=== PATIENT | female | born 1940 | race Caucasian/White ===

== ENCOUNTER 2021-03-01 15:54 | Emergency (ER) | payer MEDICARE, SELFPAY ==
--- NOTE | ~2021-03-01 | CT_ITS ---
EXAMINATION: CT brain wo con DATE: 03/01/2021 16:39 INDICATION: Neck pain. Fall. TECHNIQUE: Computed tomography (CT) of the head was performed without intravenous contrast. The mA wa s adjusted according to patient size. Iterative reconstruction technique was employed. The dose-lengt h product was 681.00 mGy-cm. COMPARISON: Head CT 06/19/2018 FINDINGS: There is old infarct in right frontal lobe. There are scattered areas of low attenuation in the cerebral white matter. There is no intracranial hemorrhage, acute infarction, or abnormal intrac ranial mass lesion. The ventricles are normal in size. There is mild mucosal thickening in the parana carmela sinuses. There are likely changes of ocular lens replacement surgeries. The mastoid air cells are normal. IMPRESSION: 1. 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 2. Mild nonspecific cerebral white matter disease, which likely represents chronic small vessel ische july disease. Reviewed, dictated and finalized at location A. IMPRESSION: 1. 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 2. Mild nonspecific cerebral white matter disease, which likely represents pot fisher catrachito small vessel ischemic disease.
--- NOTE | ~2021-03-01 | XR_ITS ---
EXAMINATION: XR hip LT 2V w AP pelvis DATE: 03/01/2021 16:57 INDICATION: Left hip injury. TECHNIQUE: An anteroposterior view of the pelvis and 2 views of left hip were obtained. COMPARISON: Abdomen radiographs 09/29/2013 FINDINGS: There is lumbar levoscoliosis and severe spondylosis. No fracture. There is mild osteoarthr itis of the hips. A pump overlies left pelvis. IMPRESSION: 1. Mild osteoarthritis of the hips. Reviewed, dictated and finalized at location A.
--- NOTE | ~2021-03-01 | XR_ITS ---
EXAMINATION: XR chest 1V DATE: 03/01/2021 16:57 INDICATION: Left shoulder pain. Fall. TECHNIQUE: A single frontal view of the chest was obtained. COMPARISON: Chest 2 views 06/19/2018 FINDINGS: There is chronic mild elevation of right hemidiaphragm. There is mild atelectasis in the lo wer lung zones. Calcified left lung nodules and calcified left hilar lymph nodes are consistent with old granulomatous disease. No pleural effusion or pneumothorax. Cardiomegaly is noted. Surgical clips in the right upper quadrant are likely from cholecystectomy. IMPRESSION: 1. Mild atelectasis in the lower lung zones. 2. Cardiomegaly. Reviewed, dictated and finalized at location A.
--- NOTE | ~2021-03-01 | CT_ITS ---
EXAMINATION: CT cervical spine wo con DATE: 03/01/2021 16:39 INDICATION: Neck pain. Fall. TECHNIQUE: Computed tomography (CT) of the cervical spine was performed without intravenous contrast. Automated exposure control and iterative reconstruction technique were employed. The dose-length pro duct was 213.20 mGy-cm. COMPARISON: None FINDINGS: Bone alignment is normal. Vertebral body heights are normal. There is mildly decreased disc height at C3-C4 and mildly decreased disc height from C4-C5 through C6-C7. The following disc levels are specifically discussed: C2-C3: There is no uncovertebral joint osteoarthritis. There is mild right and severe left facet join t osteoarthritis. There is mild left neural foraminal stenosis. There is no central canal stenosis. C3-C4: There is severe right and mild left uncovertebral joint osteoarthritis. There is severe bilate ral facet joint osteoarthritis. There is mild bilateral neural foraminal stenosis. There is mild cent ral canal stenosis. C4-C5: There is mild right uncovertebral joint osteoarthritis. There is severe bilateral facet joint osteoarthritis. There is mild bilateral neural foraminal stenosis. There is mild central canal stenos is. C5-C6: There is severe right and moderate left uncovertebral joint osteoarthritis. There is severe bi lateral facet joint osteoarthritis. There is mild right and moderate left neural foraminal stenosis. There is mild central canal stenosis. C6-C7: There is no uncovertebral joint osteoarthritis. There is severe bilateral facet joint osteoart hritis. There is mild bilateral neural foraminal stenosis. There is mild central canal stenosis. C7-T1: There is no uncovertebral joint osteoarthritis. There is severe bilateral facet joint osteoart hritis. There is mild bilateral neural foraminal stenosis. There is no central canal stenosis. IMPRESSION: 1. No fracture. 2. Moderate cervical spondylosis. Reviewed, dictated and finalized at location A.
--- NOTE | ~2021-03-01 | XR_ITS ---
EXAMINATION: XR shoulder LT min 2V DATE: 03/01/2021 16:57 INDICATION: Left shoulder pain. Fall. TECHNIQUE: 4 views of left shoulder were obtained. COMPARISON: Left shoulder radiographs 05/07/2011 FINDINGS: Bone alignment is normal. No fracture. There is advanced glenohumeral joint osteoarthritis. The acromioclavicular joint is normal. IMPRESSION: 1. Advanced left glenohumeral joint osteoarthritis. Reviewed, dictated and finalized at location A.
[2021-03-01 15:49] VITALS: PULSE 79; RESP 18; O2SAT 99
[2021-03-01 17:22] LABS: Add Urine Microscopic? YES; Appearance Urine Clear (Clear); Bilirubin Urine Negative (Negative); Blood Urine Negative (Negative); Color Urine Yellow (Yellow); Glucose Urine UA Negative (Negative); Ketones Urine Negative (Negative); Leukocyte Esterase Ur Negative LEU/UL (Negative); Nitrate Urine Negative (Negative); Protein Urine Negative (Negative); RBC Urine 0-2 /hpf (0-2); Squamous Epithelial Cell Urine Rare /hpf (Few); Urobilinogen Urine Negative mg/dL (<2.0); WBC Urine 0-3 /hpf
--- NOTE | 2021-03-01 17:39 | ED.FALL ---
HPI - Fall General Chief Complaint: Fall Stated Complaint: fall Time Seen by Provider: 03/01/21 15:56 Source: family (daughter), EMS and RN notes reviewed Mode of arrival: wheelchair Limitations: dementia History of Present Illness HPI Narrative: This is an 80 year old female with Dementia and chronic pain syndrome who presents for evaluated of an unwitnessed fall. Her daughter is at bedside to help provide history. She thinks patient slide out of her chair and fall. She reports patient is not acting like anything new is hurting. Patient does not remember fall. she is complaining of her chronic left shoulder pain and chronic back pain. Related Data Allergies Allergy/AdvReac Type Severity Reaction Status Date / Time dimenhydrinate [Dramamine] Allergy Unknown dizziness Verified 03/01/21 15:58 meclizine Allergy Unknown dizziness Verified 03/01/21 15:58 morphine Allergy Unknown HALLUCINATI Verified 03/01/21 15:58 ON sulfamethizole Allergy Unknown Nausea Verified 03/01/21 15:58 Review of Systems Review of Systems: ROS unobtainable: Yes other (dementia) [facility] Past Medical History Medical History Chronic pain syndrome Essential (primary) hypertension Presence of intracervical pessary Surgical History Surgical History History of adenoidectomy History of back surgery History of dilation and curettage History of foot surgery (~1978) History of hysterectomy (~04/22/08) has ovaries History of tonsillectomy History of total right knee replacement (TKR) (~08/09/02) History of tubal ligation Hx of cholecystectomy (~02/24/12) Family History Family History Sibling Breast cancer Mother Breast cancer Father Heart failure Other Diabetes mellitus Hypertension Social History Social History Smoking status: Never smoker Alcohol intake: never Exam Const: General: no acute distress and alert Other: oriented to person, at baseline per daughter HENMT: Head: normocephalic and atraumatic General nose exam: Normal external nose present Face and sinus: normal facial exam and face symmetric Mouth: Yes Normal oral and palatal mucosa present, Yes lip normal, Yes oropharynx normal and Yes moist mucous membranes Eyes: Pupils: Equal, round and reactive pupils present EOM: EOMs intact bilaterally Neck: Other: mild posterior neck tenderness, muscular Chest: Chest palpation & inspection: normal inspection of the chest Resp: Effort & Inspection: normal respiratory effort and no retractions Auscultation: clear to auscultation bilaterally Cardio: Rate: regular rate Rhythm: regular rhythm Heart sounds: no murmurs GI: GI Palp: Yes Soft to palpation, No Tenderness to palpation present (GI) and No Guarding due to palpation present (GI) Auscultation: normal bowel sounds Neuro: General: moves all extremities and CN's II-XI intact bilaterally Extrem: Other: able to move all extremities although pain with movement of left shoulder and left hip. Psych: Mental Status: mental status grossly normal Affect: normal affect Course Reevaluation(s) Reevaluation #1: I Discussed with daughter patient's labs and imaging. She is agreeable with discharge Date: 03/01/21 Time: 18:33 Vital Signs Vital signs: Vital Signs Pulse Rate 79 03/01/21 15:49 Respiratory Rate 18 03/01/21 15:49 Pulse Oximetry 99 03/01/21 15:49 Pulse Rate 86 03/01/21 18:15 Respiratory Rate 18 03/01/21 18:15 Blood Pressure 156/93 H 03/01/21 18:15 Pulse Oximetry 97 03/01/21 18:15 MDM - Fall Lab Data Attestation: I reviewed the patient's lab results. Result diagrams: 03/01/21 17:42 03/01/21 17:42 Labs: Lab Results 03/01/21 03/01/21 03/01/21 Range/Units 17:04 17:42 17:42 WBC 11.1 H (4.5-10.0) K/mm3 RBC 4.14 L
[2021-03-01 18:03] LABS: Basophils Absolute Auto 0.1 K/mm3 (0.0-0.1); Basophils Percent Auto 0.5 % (0.2-1.2); Eosinophils Absolute Auto 0.1 K/mm3 (0-0.3); Eosinophils Percent Auto 0.9 % (0-4.4); Hematocrit 38.7 % (37.0-47.0); Hemoglobin 12.9 g/dL (12.0-15.0); Immature Granulocyte Absolute 0.03 K/mm3 (0.00-0.031); Immature Granulocyte Percent A 0.3 % (0-0.5); Lymphocytes Absolute Auto 2.02 K/mm3 (0.9-3.2); Lymphocytes Percent Auto 18.3 % (18.3-44.2); Mean Corpuscular HGB Conc 33.3 g/dl (32-36); Mean Corpuscular Hemoglobin 31.2 pg (26-34); Mean Corpuscular Volume 93.5 fl (80-100); Mean Platelet Volume 9.6 fl (7.4-10.4); Monocytes Absolute Auto 0.5 K/mm3 (0.1-0.6); Monocytes Percent Auto 4.3 % (2.6-8.5); Neutrophils Absolute Auto 8.4 K/mm3 (1.3-6.7); Neutrophils Percent Auto 75.7 % (45.5-73.1); Platelet Count Result 197 k/mm3 (150-375); Red Blood Count 4.14 M/mm3 (4.2-5.4); Red Cell Distribution Width 13.1 % (11.5-14.5); White Blood Count 11.1 K/mm3 (4.5-10.0)
[2021-03-01 18:14] LABS: Alanine Aminotransferase 18 U/L (4-35); Albumin Level 4.2 g/dL (3.5-5.1); Alkaline Phosphatase 72 U/L (38-126); Anion Gap 7 mmol/L (8-16); Aspartate Amino Transferase 27 U/L (14-36); Bilirubin,Total 0.4 mg/dL (0.2-1.3); Blood Urea Nitrogen 20 mg/dL (7-17); Calcium 9.5 mg/dL (8.4-10.2); Carbon Dioxide 29 mmol/L (22-30); Chloride 101 mmol/L (98-107); Estimated CRCL calculation 34 ml/min; Estimated Glomerular Filt Rate 48; Glucose 111 mg/dL (65-110); Potassium 3.9 mmol/L (3.4-5.0); Sodium 137 mmol/L (137-145)
[2021-03-01 18:15] VITALS: BP 156/93; PULSE 86; RESP 18; O2SAT 97
== END 2021-03-01 18:54 ==
PROVIDERS: Emergency Provider General Practice; PCP Family Medicine
DX: M19.012 Primary osteoarthritis, left shoulder (principal); G89.4 Chronic pain syndrome; I10 Essential (primary) hypertension; Z96.651 Presence of right artificial knee joint; R90.82 White matter disease, unspecified; M16.0 Bilateral primary osteoarthritis of hip; M47.812 Spondylosis without myelopathy or radiculopathy, cervical region; I51.7 Cardiomegaly; W07.XXXA Fall from chair, initial encounter
CPT/HCPCS: 36415; 51701; 70450; 71045; 72125; 73030; 73502; 80053; 81001; 85025; 99284

== ENCOUNTER 2022-04-05 09:11 | Observation (INO) | payer MEDICARE, SELFPAY ==
[2022-04-05] VITALS (14 sets, daily range): BP systolic 115–168; BP diastolic 58–89; PULSE 69–89; RESP 12–20; TEMP 36.2–37; O2SAT 95–100; BMI 29.5
--- NOTE | ~2022-04-05 | XR_ITS ---
EXAMINATION: XR chest 1V portable DATE: 04/05/2022 09:34 INDICATION: Altered mental status. TECHNIQUE: A single frontal view of the chest was obtained. COMPARISON: Chest single view 03/01/2021 FINDINGS: There is chronic mild elevation of right hemidiaphragm. There is mild atelectasis at the lilliana ng bases. No pleural effusion or pneumothorax. Cardiomegaly is noted. IMPRESSION: 1. Mild atelectasis at the lung bases. 2. Cardiomegaly. Reviewed, dictated and finalized at location A.
--- NOTE | ~2022-04-05 | CT_ITS ---
EXAMINATION: CT brain wo con DATE: 04/05/2022 10:46 INDICATION: Altered mental status TECHNIQUE: Computed tomography (CT) of the head was performed without intravenous contrast. Sagittal and coronal reconstructions were performed. The mA was adjusted according to patient size. Iterative reconstruction technique was employed. The dose-length product was 681.00 mGy-cm. COMPARISON: head CT dated 03/01/2021 FINDINGS: Again seen is a small region of encephalomalacia consistent with old infarct in the anterior right fr ontal lobe. No acute intracranial hemorrhage, acute infarction or abnormal extra axial fluid collecti on. There is mild scattered white matter hypoattenuation consistent with chronic small vessel ischemi c disease. Symmetric prominence of the sulci consistent with moderate age-appropriate diffuse cerebra l volume loss. Ventricles are normal and symmetric. No mass/mass effect. Changes of bilateral intrao cular lens replacement. Bilateral leydi palatinus. The orbits and mastoid air cells are normal. Mild m ucosal thickening at the left sphenoid and bilateral ethmoid sinuses. IMPRESSION: 1. Small old infarct in the right frontal lobe. No acute intracranial process. 2. Age-related changes including moderate diffuse on loss and mild scattered white matter hypoattenua tion consistent with chronic small vessel ischemic disease. Reviewed, dictated and finalized at location B. IMPRESSION: 1. Small old infarct in the right frontal lobe. No acute intracranial process. 2. Age-related changes including moderate diffuse on loss and mild scattered wh ite matter hypoattenuation consistent with chronic small vessel ischemic diseas e.
--- NOTE | ~2022-04-05 | CT_ITS ---
EXAMINATION: CT abdomen pelvis w con DATE: 04/05/2022 11:54 INDICATION: Abdominal pain TECHNIQUE: Computed tomography (CT) of the abdomen and pelvis was performed with 100 mL Omnipaque-350 intravenous contrast. Automated exposure control and iterative reconstruction technique were employe d. The dose-length product was 990.06 mGy-cm. COMPARISON: CT abdomen dated 02/25/2004 FINDINGS: Volume loss in the bilateral lower lobes with dependent atelectasis, left greater than right. Additio nal compressive atelectasis in the posterior medial lingula. Mild cardiomegaly. No pericardial or ple ural effusion. No pericardial or pleural effusion. Small sliding-type hiatal hernia. The common bile duct is dilated to 1.5 cm there is also moderate intrahepatic biliary ductal dilation, both findings which could be related to interval cholecystectomy with surgical clips the gallbladder fossa. No evid ent obstructing stones or mass. Gas and debris within a 2.3 cm duodenal diverticulum arising from the second portion of the duodenum. Spleen and pancreas are normal. Bilateral adrenal nodules measuring 9 mm on the left and 2.4 x 1.6 cm on the right which is increased from 1.6 x 1.0 cm on study from 18 years prior which would be most consistent an adenoma. Bilateral renal cysts, the largest on the righ t measuring 4.4 cm. Moderate amount stool scattered throughout the colon. There are few scattered hossein catrachito diverticula without adjacent inflammatory change to suggest diverticulitis. Small bowel and appen brent are normal. Bladder is normal. The uterus is not identified and has likely been surgically resect ed. Likely intrathecal pain pump in the subcutaneous tissues at the anterior left pelvis with cathete r extending into the mid lumbar central canal extending cephalad to the level of T10-T11. 30 degrees lumbar levoscoliosis with severe lumbar and lower thoracic spondylosis. IMPRESSION: 1. Moderate intra and extrahepatic biliary ductal dilation which may relate to prior cholecystectomy but would correlate with liver function tests. If symptoms and there is clinical concern for biliary obstruction could consider MRCP for further evaluation. 2. Atelectasis in the bilateral lower lung zones. 3. Cardiomegaly. 4. Small sliding-type hiatal hernia. Reviewed, dictated and finalized at location B. IMPRESSION: 1. Moderate intra and extrahepatic biliary ductal dilation which may relate to prior cholecystectomy but would correlate with liver function tests. If symptom s and there is clinical concern for biliary obstruction could consider MRCP for further evaluation. 2. Atelectasis in the bilateral lower lung zones. 3. Cardiomegaly. 4. Small sliding-type hiatal hernia.
--- NOTE | 2022-04-05 09:17 | ECG_ITS ---
Measurements Intervals [place] Rate: 72 P: 35 CT: 180 QRS: -43 QRSD: 140 T: 83 QT: 409 QTc: 450 Interpretive Statements SINUS RHYTHM LEFT AXIS DEVIATION [QRS AXIS < -30] LEFT BUNDLE BRANCH BLOCK [120+ ms QRS DURATION, 80+ ms Q/S IN V1/V2, 85+ ms R IN I/aVL/V5/V6] NO PREVIOUS ECG AVAILABLE FOR COMPARISON Electronically Signed On 04-06-2022 13:04:39 CDT by Mercy Cortés M.D.
[2022-04-05 09:42] LABS: Glucose Point of Care 89 mg/dl (65-105)
--- NOTE | 2022-04-05 09:57 | ED.AMS ---
HPI - Altered Mental Status General Chief Complaint: Altered Mental Status Stated Complaint: sob/weakness Time Seen by Provider: 04/05/22 09:11 Source: RN notes reviewed History of Present Illness HPI narrative: Patient presents emergency department from [facility] via EMS for altered mental status. History is per EMS and patient. Per EMS when the nursing staff went to check on patient this morning she was minimally responsive when EMS arrived patient was to be hypoxic with an O2 saturation of 85%. At that time she was placed on a nonrebreather and transferred to the ER she was responsive to verbal stimuli at that time but slow to respond to give answers patient is currently laying in bed with her eyes closed she will open her eyes to verbal stimuli she is able to tell me her name and knows that she is at the hospital she denies any complaints at this time per her record she has a morphine pain pump is also on trazodone and Related Data Home Medications Medication Instructions Recorded Confirmed [id number] 120 mcg-lutein 1 tablet PO 03/23/21 03/23/21 150 mcg-herb 37.5 mg chewable tablet (Alive Women's 50 Plus Gummy) Allergies Allergy/AdvReac Type Severity Reaction Status Date / Time dimenhydrinate [Dramamine] Allergy Unknown dizziness Verified 04/05/22 09:32 meclizine Allergy Unknown dizziness Verified 04/05/22 09:32 morphine Allergy Unknown HALLUCINATI Verified 04/05/22 09:32 ON sulfamethizole Allergy Unknown Nausea Verified 04/05/22 09:32 Review of Systems Review of Systems: Gen.: Denies fevers or chills Eyes: Denies eye pain or visual change ENT: Denies congestion Respiratory: Reports shortness of breath CV: Denies chest pain or palpitations GI: Denies abdominal pain nausea, emesis Musculoskeletal: Denies back or joint pain Neuro: Reports altered mental status Skin: Denies rash Except as documented, all other systems reviewed and negative [facility] Past Medical History Medical History Chronic pain syndrome Essential (primary) hypertension Presence of intracervical pessary Surgical History Surgical History History of adenoidectomy History of back surgery History of dilation and curettage History of foot surgery (~1978) History of hysterectomy (~04/22/08) has ovaries History of tonsillectomy History of total right knee replacement (TKR) (~08/09/02) History of tubal ligation Hx of cholecystectomy (~02/24/12) Family History Family History Sibling Breast cancer Mother Breast cancer Father Heart failure Other Diabetes mellitus Hypertension Social History Social History (Updated 04/05/22 @ 13:14 by Kyle Green DO) Smoking status: Never smoker Alcohol intake: never Exam Narrative: APPEARANCE: No acute distress, nontoxic, resting in bed EYES: PERRL HEENT: Normocephalic, atraumatic, OMM RESPIRATORY: No respiratory distress Clear to auscultation bilaterally with no rhonchi wheezing or rales. CARDIOVASCULAR: Regular rate and rhythm without murmurs rubs or gallops. ABDOMINAL: Soft, nontender, nondistended, no rebound or guarding nondistended tender in right lower quadrant left lower quadrant no tenderness in the right upper quadrant left lower quadrant no rebound or guarding al: Moves all extremities. No clubbing, cyanosis or edema. NEURO: Awake and alert x 2. Laying in bed with eyes closed will open to verbal stimuli slow to respond speech is normal no focal deficits SKIN:: Warm, dry. No rashes lesions or abrasions PSYCHIATRIC: Normal affect/mood, Course Course Emergency Course: His daughter is present states that this has happened before with medications before in the past and had to change medications around Discussed Dr. Ross presentation work-up agrees with admission Discussed with patient and family results of workup and diagnosis. Discuss
[2022-04-05 10:05] LABS: Alveolar/Arterial O2 Gradient 0.2 mmHg; Base Excess ABG 4.2 mEq/l (+/-2.0); Fractional Inspired Oxygen 40 %; HCO3 ABG 29.6 mEq/l (22.0-26.0); Methemoglobin ABG 0.1 %THb (0-1.5); Oxygen Content ABG 18.2 %vol (16.0-22.0); Oxygen Saturation ABG 99.5 % (95.0-100.0); PCO2 ABG 47.5 mmHg (35.0-45.0); PO2 ABG 230.4 mmHg (80.0-100.0); PO2 FiO2 Ratio Arterial Blood 5.76 %; Reduced Hemoglobin 0.9 %THb (0-5.0); Total Hemoglobin 12.8 g/dL (12.0-18.0); pH ABG 7.412 (7.350-7.450)
[2022-04-05 10:06] LABS: Device NASAL CANNULA; Modified Allen's Test Pass; Site Drawn LEFT RADIAL
[2022-04-05 10:26] LABS: Basophils Absolute Auto 0.1 K/mm3 (0.0-0.1); Basophils Percent Auto 0.5 % (0.2-1.2); Eosinophils Absolute Auto 0.3 K/mm3 (0-0.3); Eosinophils Percent Auto 2.6 % (0-4.4); Hematocrit 41.7 % (37.0-47.0); Hemoglobin 13.1 g/dL (12.0-15.0); Immature Granulocyte Absolute 0.05 K/mm3 (0.00-0.031); Immature Granulocyte Percent A 0.5 % (0-0.5); Lymphocytes Absolute Auto 2.69 K/mm3 (0.9-3.2); Lymphocytes Percent Auto 26.4 % (18.3-44.2); Mean Corpuscular HGB Conc 31.4 g/dl (32-36); Mean Corpuscular Hemoglobin 30.8 pg (26-34); Mean Corpuscular Volume 97.9 fl (80-100); Monocytes Absolute Auto 0.6 K/mm3 (0.1-0.6); Monocytes Percent Auto 5.4 % (2.6-8.5); Neutrophils Absolute Auto 6.6 K/mm3 (1.3-6.7); Neutrophils Percent Auto 64.6 % (45.5-73.1); Platelet Count Result 220 k/mm3 (150-375); Red Blood Count 4.26 M/mm3 (4.2-5.4); Red Cell Distribution Width 13.8 % (11.5-14.5); White Blood Count 10.2 K/mm3 (4.5-10.0)
[2022-04-05 10:39] LABS: Lactic Acid Reflex 1.9 mmol/L (0.7-2.0)
[2022-04-05 10:40] LABS: Alanine Aminotransferase 23 U/L (6-35); Albumin Level 4.4 g/dL (3.5-5.1); Alkaline Phosphatase 80 U/L (38-126); Anion Gap 13 mmol/L (8-16); Aspartate Amino Transferase 34 U/L (14-36); Bilirubin,Total 0.3 mg/dL (0.2-1.3); Blood Urea Nitrogen 24 mg/dL (7-17); Calcium 9.6 mg/dL (8.4-10.2); Carbon Dioxide 34 mmol/L (22-30); Chloride 97 mmol/L (98-107); Estimated CRCL calculation 31 ml/min; Estimated Glomerular Filt Rate 43; Glucose 100 mg/dL (65-110); Potassium 3.8 mmol/L (3.4-5.0); Sodium 144 mmol/L (137-145)
[2022-04-05 10:41] LABS: Partial Thromboplastin Time 27.9 SECONDS (22.3-36.8); Prothrombin Time 12.8 Seconds (11.1-14.7)
[2022-04-05 11:00] LABS: Add Urine Microscopic? YES; Appearance Urine Cloudy (Clear); Bacteria Urine Trace /hpf; Bilirubin Urine Negative (Negative); Color Urine Amber (Yellow); Glucose Urine UA Negative (Negative); Ketones Urine Negative (Negative); Leukocyte Esterase Ur Negative LEU/UL (Negative); Mucus Urine Rare /lpf; Nitrate Urine Negative (Negative); Protein Urine Negative (Negative); RBC Urine 0-2 /hpf (0-2); Squamous Epithelial Cell Urine Rare /hpf (Few); Urobilinogen Urine Negative mg/dL (<2.0)
[2022-04-05 11:02] LABS: Blood Urine Negative (Negative)
[2022-04-05 11:03] LABS: NT Pro B Type Natriuretic Pept 141 pg/mL (5-100)
[2022-04-05 11:07] LABS: Troponin I < 0.012 ng/mL (0.000-0.034)
[2022-04-05 12:41] LABS: Lipase 164 U/L (23-300)
[2022-04-05 13:03] LABS: SARS-CoV-2 RNA PCR Negative
--- NOTE | 2022-04-05 15:33 | PM.IMHP ---
H&P: HPI History of Present Illness Date/Time: 04/05/22 15:33 Chief Complaint: Shoulder pain, unresponsive behavior, and low saturations Narrative: Patient is an 81-year-old female with a past medical history of hyperlipidemia, dementia, chronic pain syndrome, hypertension who [facility]. It was noted the patient's saturation at the jail was 85%. At that time she was placed on oxygen. Upon arrival to the ED patient was able to respond to aggressive stimuli however would not remain responsive. Currently patient is alert oriented to herself. Which is probably her baseline. Patient can tell me that she is experiencing pain especially in her bilateral shoulders however she cannot tell me why she is here. She did state that she was unable to move her arms however she could do the dgzwep-hz-sxra test multiple different locations. She denies having any chest pain, shortness a breath, nausea, vomiting, diarrhea, constipation, weakness, fatigue, lightheadedness, dizziness, headaches, abdominal pain, abnormal swelling. She would just continuously tell me her shoulders hurt and that she had pain just everywhere. She seems to be much more with it as she did tell me she lives in [facility]. She also told me that she has kids however there much older now. Labs are unremarkable, x-rays are also unremarkable, UA does not appear to be infectious at this time. Patient is being admitted to the hospital service under observation Review of Systems Review of Systems: All systems reviewed & are unremarkable except as noted in HPI and below PMFSH Past Medical History Medical History Chronic pain syndrome Essential (primary) hypertension Presence of intracervical pessary Surgical History Surgical History History of adenoidectomy History of back surgery History of dilation and curettage History of foot surgery (~1978) History of hysterectomy (~04/22/08) has ovaries History of tonsillectomy History of total right knee replacement (TKR) (~08/09/02) History of tubal ligation Hx of cholecystectomy (~02/24/12) Family History Family History Sibling Breast cancer Mother Breast cancer Father Heart failure Other Diabetes mellitus Hypertension Social History Social History Social History: Patient lives at [facility] in [facility]. Her daughter is her healthcare POW Carine. She wishes to be a DNR at this time. Smoking status: Never smoker Alcohol intake: never Substance use: never Living arrangements: assisted living Occupation/Education: retired Gender identity (if verbalized by the patient): Female Sexual Orientation (if Verbalized by the Patient): Straight or Heterosexual Spiritual care concerns: No Agree to blood products: Yes Meds Home Medications and Allergies Home Medications Medication Instructions Recorded Confirmed Type meloxicam 7.5 mg tablet 7.5 mg PO DAILY #90 tabs 09/22/20 04/05/22 Rx quetiapine 200 mg tablet,extended 200 mg PO QHS #90 tabs 01/16/21 04/05/22 Rx release 24 hr (Seroquel XR) [id number] 120 mcg-lutein 1 tablet PO DAILY 03/23/21 04/05/22 History 150 mcg-herb 37.5 mg chewable tablet (Alive Women's 50 Plus Gummy) memantine 10 mg tablet (Namenda) 10 mg PO BID #180 tabs 04/06/21 04/05/22 Rx gabapentin 100 mg capsule 100 mg PO BID #180 caps 05/04/21 04/05/22 Rx famotidine 40 mg tablet See Rx Instructions .Route 06/24/21 04/05/22 Rx .COMPLEX #90 tabs hydrochlorothiazide 12.5 mg capsule 12.5 mg PO DAILY #90 caps 06/29/21 04/05/22 Rx lovastatin 20 mg tablet 20 mg PO DAILY #90 tabs 06/29/21 04/05/22 Rx duloxetine 60 mg capsule,delayed See Rx Instructions .Route 08/03/21 04/05/22 Rx release .COMPLEX #90 caps alprazolam 0.5
--- NOTE | 2022-04-05 16:03 | ADMGEN ---
This patient, Dayanara Avina, was admitted to IMU Room 207-01 at 1500. Patient/family oriented to hospital policies and general routines including ID bracelet, bed and alarms, visiting hours, pain management, procedures, bathroom and other care routines, personal items, smoking policy, room service/diet, and visiting hours. Information on how to activate the Rapid Response Team has been discussed. Patient/Family are encouraged to report perceived risks to care and to ask questions if they do not understand what they are told or what they should do.
[2022-04-05] MEDS: GABAPENTIN 100 MG CAPSULE PO (22:36)
[2022-04-05] MEDS: MEMANTINE 10 MG TABLET PO (22:37)
--- NOTE | 2022-04-05 23:49 | PC.NURSE ---
This patient, Dayanara Avina, was transferred to [facility] on 04/05/22 at 2349. Personal belongings sent with patient. Report given to BLANQUITA Pitts. Appropriate documentation sent with patient.
[2022-04-06 03:50] VITALS: BP 144/62; PULSE 78; RESP 16; TEMP 36.4; O2SAT 93
[2022-04-06 08:30] LABS: Basophils Percent Auto 0.4 % (0.2-1.2); Eosinophils Absolute Auto 0.1 K/mm3 (0-0.3); Eosinophils Percent Auto 1.1 % (0-4.4); Hematocrit 38.9 % (37.0-47.0); Hemoglobin 12.6 g/dL (12.0-15.0); Immature Granulocyte Absolute 0.04 K/mm3 (0.00-0.031); Immature Granulocyte Percent A 0.4 % (0-0.5); Lymphocytes Absolute Auto 2.05 K/mm3 (0.9-3.2); Lymphocytes Percent Auto 20.9 % (18.3-44.2); Mean Corpuscular HGB Conc 32.4 g/dl (32-36); Mean Corpuscular Volume 92.6 fl (80-100); Mean Platelet Volume 9.3 fl (7.4-10.4); Monocytes Absolute Auto 0.3 K/mm3 (0.1-0.6); Monocytes Percent Auto 3.5 % (2.6-8.5); Neutrophils Absolute Auto 7.2 K/mm3 (1.3-6.7); Neutrophils Percent Auto 73.7 % (45.5-73.1); Platelet Count Result 229 k/mm3 (150-375); Red Cell Distribution Width 13.4 % (11.5-14.5); White Blood Count 9.8 K/mm3 (4.5-10.0)
[2022-04-06 08:35] LABS: Alanine Aminotransferase 21 U/L (6-35); Albumin Level 4.2 g/dL (3.5-5.1); Alkaline Phosphatase 82 U/L (38-126); Anion Gap 14 mmol/L (8-16); Aspartate Amino Transferase 28 U/L (14-36); Bilirubin,Total 0.4 mg/dL (0.2-1.3); Blood Urea Nitrogen 19 mg/dL (7-17); Calcium 9.2 mg/dL (8.4-10.2); Carbon Dioxide 29 mmol/L (22-30); Chloride 99 mmol/L (98-107); Estimated CRCL calculation 34 ml/min; Estimated Glomerular Filt Rate 48; Glucose 123 mg/dL (65-110); Potassium 3.6 mmol/L (3.4-5.0); Sodium 142 mmol/L (137-145)
[2022-04-06] MEDS: MEMANTINE 10 MG TABLET PO (09:10)
[2022-04-06] MEDS: GABAPENTIN 100 MG CAPSULE PO (09:10)
[2022-04-06] MEDS: ENOXAPARIN 40 MG/0.4 ML SYRINGE SUB-Q (09:11)
[2022-04-06] MEDS: FAMOTIDINE 20 MG TABLET 40 MG PO (09:11)
[2022-04-06] MEDS: DULoxetine HCL 60 MG CAPSULE.DR PO (09:11)
[2022-04-06] MEDS: LOVASTATIN 20 MG TABLET PO (09:11)
--- NOTE | 2022-04-06 10:15 | PM.DS ---
DS: Admitting Diagnosis Discharge Date 04/06/22 1015 Admitting Diagnosis Acute metabolic encephalopathy DS: Discharge Diagnosis Discharge Diagnosis (1) Acute respiratory failure with hypoxia: Code(s): J96.01 - Acute respiratory failure with hypoxia Status: Acute Assessment and Plan: Noted saturation of 85% upon arrival 5LNC on board ABG indicated hypoxia Probably related to mental status Continue to trend and adjust oxygen as indicated (2) Acute metabolic encephalopathy: Code(s): G93.41 - Metabolic encephalopathy Status: Acute Assessment and Plan: Noted to be responsive to stimuli only Unable to maintain responsiveness Trend mental status Could be related to dementia, medication induced encephalopathy 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 (4) Essential (primary) hypertension: Code(s): I10 - Essential (primary) hypertension Status: Acute Assessment and Plan: BP is 123/68 Hold HCTZ for now Continue to trend BP Adjust therapy as indicated DS: Summary Hospital Course Hospital Course: Patient is an 81-year-old female with a past medical history of chronic pain syndrome, hypertension, multiple back surgeries, muscular skeletal issues who presented to the ED with unresponsive behavior and desaturation. Patient does have a pain pump however she is demented does not really she has 1. It is noted that patient takes a lot of medications including Seroquel, trazodone, Xanax, and tramadol. ABG was taken which was unremarkable. Labs also have been unremarkable and have remained stable throughout the entire visit. Mental status is better. Head CT showed no acute findings. Chest x-ray was okay as well. Patient does complain of pain however she always has pain. I did have a long discussion with the daughter who would like for the patient to stop receiving the Xanax, tramadol however she is concerned about stopping the Seroquel as the patient does have some panic type issues. Currently patient is stable for discharge and daughter states that she has had states like this before. The daughter also stated that a lot of times to get her up she puts ice under her shirt and a wet washcloth on her face. Patient feels okay. Patient is stable for discharge at this time. PT and OT have evaluated and patient is stable for discharge back to her assisted living. Stopped Xanax and tramadol Talked to Juliann's office and gave them an update. Status at Discharge Functional status at discharge: uses cane/walker Overall status at discharge: patient is progressing back to baseline Time Spent with Patient Time attestation: Total time spent providing and/or coordinating discharge services:35 minutes Time spent: Greater than 30 minutes Specific discharge activities: Diagnostic testing, chart review, developing a treatment plan, education, care coordination documentation, physical exam, result review Exam Const: General: cooperative, healthy appearing, no acute distress, well developed, alert, awake and well nourished Nutritional Appearance: well nourished Orientation/consciousness: patient oriented x3 Limitations: no limitations HENMT: Head: normal to inspection Ears: hearing grossly normal bilaterally Face/Nose/Sinus: Normal external nose present Mouth: Yes Normal oral and palatal mucosa present, Yes lip normal and Yes tongue normal Teeth and gingiva: abnormal tooth and associated gingiva and poor dentition Eyes: General: appearance normal, both eyes and all related structures Neck: Neck: normal visual inspection,
[2022-04-06] MEDS: DOCUSATE SODIUM 100 MG CAPSULE PO (12:50)
[2022-04-06] MEDS: polyethylene glycoL 3350 17 GM POWD.PACK PO (12:50)
[2022-04-06 14:24] VITALS: BP 132/65; PULSE 90; RESP 18; TEMP 36.9; O2SAT 94
== END 2022-04-06 16:20 ==
LOC: ANHED 13:16 → ANHIMU 14:25 → ANH2MED 23:54
PROVIDERS: Admitting Provider Hospitalist; Emergency Provider Emergency Medicine; PCP Family Medicine; Visit Provider Hospitalist
DX: J96.01 Acute respiratory failure with hypoxia (principal); G93.41 Metabolic encephalopathy; G89.4 Chronic pain syndrome; I11.9 Hypertensive heart disease without heart failure; Z97.8 Presence of other specified devices; Z20.822 Contact with and (suspected) exposure to COVID-19; I44.7 Left bundle-branch block, unspecified; J98.11 Atelectasis; R90.82 White matter disease, unspecified; K44.9 Diaphragmatic hernia without obstruction or gangrene; E78.5 Hyperlipidemia, unspecified; R10.9 Unspecified abdominal pain; F03.90 Unspecified dementia, unspecified severity, without behavioral disturbance, psychotic disturbance, mood disturbance, and anxiety; Z86.73 Personal history of transient ischemic attack (TIA), and cerebral infarction without residual deficits; Z79.891 Long term (current) use of opiate analgesic; Z79.899 Other long term (current) drug therapy; R79.81 Abnormal blood-gas level
CPT/HCPCS: 36415; 36600; 70450; 71045; 74177; 80053; 81001; 82375; 82805; 82948; 83050; 83605; 83690; 83880; 84484; 85025; 85610; 85730; 87040; 87086; 87147; 87181; 87186; 93005; 96372; 97161; 99291; A9270; C9803; G0378; J1650; Q9967; U0003; U0005

== ENCOUNTER 2022-04-15 06:54 | Emergency (ER) | payer MEDICARE, SELFPAY ==
[2022-04-15] VITALS (15 sets, daily range): BP systolic 140–174; BP diastolic 68–90; PULSE 67–78; RESP 12–19; TEMP 36.7; O2SAT 90–99
--- NOTE | 2022-04-15 07:16 | ECG_ITS ---
Measurements Intervals [place] Rate: 71 P: 46 [place]: 177 QRS: -43 QRSD: 140 T: 101 QT: 413 QTc: 449 Interpretive Statements SINUS RHYTHM MARKED LEFT AXIS DEVIATION [QRS AXIS < -30] LEFT BUNDLE BRANCH BLOCK [120+ ms QRS DURATION, 80+ ms Q/S IN V1/V2, 85+ ms R IN I/aVL/V5/V6] ABNORMAL ECG COMPARED TO ECG 04/05/2022 09:55:51 NO SIGNIFICANT CHANGES Electronically Signed On 04-15-2022 14:55:22 CDT by Vik Meehan M.D.
--- NOTE | 2022-04-15 07:20 | ED.GENADULT ---
HPI - General Adult General Chief complaint: Overdose Stated complaint: nh double dosed her morning meds at 0500 Time Seen by Provider: 04/15/22 07:18 Source: EMS and RN notes reviewed Mode of arrival: EMS Limitations: dementia History of Present Illness HPI narrative: 81 years old white female came from [facility] with accidental overdose on her regular medication. At 5 AM patient received her normal medications which include duloxetine 60 mg, famotidine 40 mg, gabapentin 100 mg, hydrochlorothiazide 12.5 mg, lovastatin 20 mg, meloxicam 7.5 mg,mantadine 10 mg, trazodone 50 mg, women's 50+ vitamin. The same medications was given again at 5:30 AM. Patient looks asymptomatic at this time. History of dementia Related Data Home Medications Medication Instructions Recorded Confirmed [id number]-[id number] 120 mcg-lutein 1 tablet PO DAILY 03/23/21 04/07/22 150 mcg-herb 37.5 mg chewable tablet (Alive Women's 50 Plus Gummy) Allergies Allergy/AdvReac Type Severity Reaction Status Date / Time dimenhydrinate [Dramamine] Allergy Unknown dizziness Verified 04/07/22 15:25 meclizine Allergy Unknown dizziness Verified 04/07/22 15:25 sulfamethizole Allergy Unknown Nausea Verified 04/07/22 15:25 Review of Systems Review of Systems: ROS unobtainable: Yes unobtainable due to mental status PMFSH Past Medical History Medical History Chronic pain syndrome Essential (primary) hypertension Presence of intracervical pessary Surgical History Surgical History History of adenoidectomy History of back surgery History of dilation and curettage History of foot surgery (~1978) History of hysterectomy (~04/22/08) has ovaries History of tonsillectomy History of total right knee replacement (TKR) (~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 She wishes to be a DNR at this time. Smoking status: Never smoker Alcohol intake: never Substance use: never Gender identity (if verbalized by the patient): Female Sexual Orientation (if Verbalized by the Patient): Straight or Heterosexual Spiritual care concerns: No Agree to blood products: Yes Exam Narrative: General appearance: Well-developed, well-nourished Skin: Normal color Head: Normocephalic, nontraumatic Eyes: Clear conjunctiva ENT: Oropharynx normal, ears normal, nose normal Neck: Supple, nontender Chest and respiratory: Airway patent, no respiratory distress, no accessory muscle use Heart: Regular rate/rhythm Abdomen: Soft, nontender, no organomegaly, quiet bowel sounds Vascular: Normal peripheral pulses, normal capillary refill. Neurologic: Alert and oriented to her name only Course Vital Signs Vital signs: Vital Signs Temperature 36.7 C 04/15/22 06:54 Pulse Rate 72 04/15/22 06:54 Respiratory Rate 14 04/15/22 06:54 Blood Pressure 152/74 H 04/15/22 06:54 Pulse Oximetry 95 04/15/22 06:54 Oxygen Delivery Room Air 04/15/22 06:54 Temperature 36.7 C 04/15/22 06:54 Pulse Rate 74 04/15/22 12:48 Respiratory Rate 18 04/15/22 12:48 Blood Pressure 140/90 04/15/22 12:48 Pulse Oximetry 94 04/15/22 12:48 Oxygen Delivery Room Air 04/15/22 06:54 Medical Decision Making Vital Signs Vital Signs: V
[2022-04-15] MEDS: SODIUM CHLORIDE 0.9% IV 1,000 ML 200 ML IV CONT (07:53)
--- NOTE | 2022-04-15 08:04 | PC.NURSE ---
Per EDP Tiffany, no need to call poison control at this time.
--- NOTE | 2022-04-15 15:12 | PC.NURSE ---
Patient's daughter, Carine, updated on patient status and discharge plan. Patient resting comfortably in ED bed.
[2022-04-15] MEDS: ACETAMINOPHEN 325 MG TABLET 650 MG PO (15:40)
== END 2022-04-15 16:00 ==
PROVIDERS: Emergency Provider Emergency Medicine; PCP Family Medicine
DX: T43.211A Poisoning by selective serotonin and norepinephrine reuptake inhibitors, accidental (unintentional), initial encounter (principal); T47.0X1A Poisoning by histamine H2-receptor blockers, accidental (unintentional), initial encounter; T42.6X1A Poisoning by other antiepileptic and sedative-hypnotic drugs, accidental (unintentional), initial encounter; T50.2X1A Poisoning by carbonic-anhydrase inhibitors, benzothiadiazides and other diuretics, accidental (unintentional), initial encounter; T46.6X1A Poisoning by antihyperlipidemic and antiarteriosclerotic drugs, accidental (unintentional), initial encounter; T39.391A Poisoning by other nonsteroidal anti-inflammatory drugs [NSAID], accidental (unintentional), initial encounter; T42.8X1A Poisoning by antiparkinsonism drugs and other central muscle-tone depressants, accidental (unintentional), initial encounter; T45.2X1A Poisoning by vitamins, accidental (unintentional), initial encounter; I10 Essential (primary) hypertension; F03.90 Unspecified dementia, unspecified severity, without behavioral disturbance, psychotic disturbance, mood disturbance, and anxiety; G89.4 Chronic pain syndrome; Z66 Do not resuscitate; Z90.710 Acquired absence of both cervix and uterus; Z96.651 Presence of right artificial knee joint; I44.7 Left bundle-branch block, unspecified
CPT/HCPCS: 93005; 96360; 96361; 99284; A9270; J7030

== ENCOUNTER 2022-06-18 12:09 | Emergency (ER) | payer MEDICARE, SELFPAY ==
[2022-06-18] VITALS (30 sets, daily range): BP systolic 127–132; BP diastolic 58–77; PULSE 76–94; RESP 14–22; TEMP 36.2; O2SAT 94–100
--- NOTE | ~2022-06-18 | XR_ITS ---
EXAMINATION: XR chest 1V portable DATE: 06/18/2022 14:11 INDICATION: Hypoxia TECHNIQUE: frontal view of the chest was obtained. COMPARISON: Chest radiograph dated 04/05/2022 FINDINGS: Chronic elevation of the right hemidiaphragm. No airspace opacities, pulmonary edema, pleural effusio n or pneumothorax. Cardiomegaly. Cholecystectomy clips in right upper quadrant. Severe bilateral adi ohumeral osteoarthritis. IMPRESSION: 1. No acute cardiopulmonary disease. 2. Cardiomegaly. Reviewed, dictated and finalized at location A. ROAD SUPERVISOR OF [employer]INES
--- NOTE | 2022-06-18 13:36 | ECG_ITS ---
Measurements Intervals [place] Rate: 79 P: 68 [place]: 183 QRS: -50 QRSD: 139 T: 99 QT: 388 QTc: 447 Interpretive Statements REDUCED ECG QUALITY BECAUSE OF BASELINE ARTIFACT SINUS RHYTHM LEFT AXIS DEVIATION [QRS AXIS < -30] LEFT BUNDLE BRANCH BLOCK [120+ ms QRS DURATION, 80+ ms Q/S IN V1/V2, 85+ ms R IN I/aVL/V5/V6] COMPARED TO ECG 04/15/2022 07:24:49 NO SIGNIFICANT CHANGES Electronically Signed On 06-18-2022 20:07:46 SETTLEMENT PROCESSOR by Akil Vaughan M.D.
--- NOTE | 2022-06-18 13:50 | ED.AMS ---
HPI - Altered Mental Status General Chief Complaint: Altered Mental Status Stated Complaint: increased confusion, Low O2 Time Seen by Provider: 06/18/22 13:28 History of Present Illness HPI narrative: Patient is an 81-year-old female with a history of dementia, chronic pain, hypertension, hyperlipidemia presenting with low oxygen. Patient's daughter provides the majority of the history. Patient is a resident in a nursing facility and was noted to have an O2 saturation of 91% today. Patient's daughter states that this often happens whenever the patient is lying down and her saturation always improves when she stands up. By the time EMS arrived, the patient saturation was normal. Patient's nursing facility is also concerned that she is slightly more confused than normal. Per the daughter, the patient is at her baseline. Patient has a personal human services supervisor visit her in her nursing facility and was actually able to ambulate to the cafeteria this morning without issue. Currently, the patient denies any complaints. States that her breathing feels normal. Related Data Home Medications Medication Instructions Recorded Confirmed [id number] 120 mcg-lutein 1 tablet PO DAILY 03/23/21 04/07/22 150 mcg-herb 37.5 mg chewable tablet (Alive Women's 50 Plus Gummy) acetaminophen 650 mg 650 mg PO BID 05/13/22 tablet,extended release (Arthritis Pain Relief (acetaminophen) ER) bacitracin zinc 500 unit-polymyxin 1 applic topical Q8H PRN skin tear 05/13/22 B 10,000 unit/gram topical ointment chlorhexidine gluconate 4 % 1 applic topical ONCE PRN skin 05/13/22 topical liquid fold cleaning diclofenac sodium 1 % topical gel 2 g topical QID 05/13/22 docusate sodium 100 mg capsule 200 mg PO DAILY 05/13/22 hydrogen peroxide 3 % solution 1 applic topical TID PRN ear wax 05/13/22 cleaning menthol 0.8 % topical powder ea topical PRN skin fold cleaning 05/13/22 midudtucqnye-osvihefy-agvxlb 1 tablet PO DAILY 05/13/22 tablet (Multivitamin 50 Plus tablet) Allergies Allergy/AdvReac Type Severity Reaction Status Date / Time dimenhydrinate [Dramamine] Allergy Unknown dizziness Verified 04/07/22 15:25 meclizine Allergy Unknown dizziness Verified 04/07/22 15:25 sulfamethizole Allergy Unknown Nausea Verified 04/07/22 15:25 Review of Systems Review of Systems: All systems reviewed & are unremarkable except as noted in HPI and below PMFSH Past Medical History Medical History Chronic pain syndrome Essential (primary) hypertension Presence of intracervical pessary Surgical History Surgical History History of adenoidectomy History of back surgery History of dilation and curettage History of foot surgery (~1978) History of hysterectomy (~04/22/08) has ovaries History of tonsillectomy History of total right knee replacement (TKR) (~08/09/02) History of tubal ligation Hx of cholecystectomy (~02/24/12) Family History Family History Sibling Breast cancer Mother Breast cancer Father Heart failure Other Diabetes mellitus Hypertension Social History Social History Social History: Patient is living at [facility] Her daughter is her healthcare POW Carine. She wishes to be a DNR at this time. Smoking status: Never smoker Alcohol intake: never Substance use: never Gender identity (if verbalized by the patient): Female Sexual Orientation (if Verbalized by the Patient): Straight or Heterosexual Spiritual care concerns: No Agree to blood products: Yes Exam Narrative: GENERAL: Elderly female lying in bed in no acute distress HEAD: Normocephalic, atraumatic. EYES: PERRLA and EOMI. ENT: Nares clear, no rhinorrhea or epistaxis. Mucous membranes moist. NECK: Supple. CHEST: Clear to auscultation. No respiratory distress. HE
[2022-06-18 13:57] LABS: Add Urine Microscopic? YES; Appearance Urine Slightly Cloudy (Clear); Bilirubin Urine Negative (Negative); Blood Urine Negative (Negative); Color Urine Light Yellow (Yellow); Glucose Urine UA Negative (Negative); Ketones Urine Trace mg/dL (Negative); Leukocyte Esterase Ur Negative LEU/UL (Negative); Nitrate Urine Negative (Negative); Protein Urine Negative (Negative); Urobilinogen Urine 0.2 mg/dL (<2.0); pH Urine 6.5 (5.0-9.0)
[2022-06-18 14:39] LABS: Influenza A QL RT-PCR Negative (Negative); Influenza B QL RT-PCR Negative (Negative); RSV RNA, RT-PCR Negative (Negative); SARS-CoV-2 RNA PCR Negative
[2022-06-18 15:14] LABS: Basophils Percent Auto 0.4 % (0.2-1.2); Eosinophils Absolute Auto 0.2 K/mm3 (0-0.3); Eosinophils Percent Auto 1.6 % (0-4.4); Hematocrit 42.3 % (37.0-47.0); Hemoglobin 13.5 g/dL (12.0-15.0); Immature Granulocyte Absolute 0.03 K/mm3 (0.00-0.031); Immature Granulocyte Percent A 0.3 % (0-0.5); Lymphocytes Absolute Auto 2.42 K/mm3 (0.9-3.2); Lymphocytes Percent Auto 26.4 % (18.3-44.2); Mean Corpuscular HGB Conc 31.9 g/dl (32-36); Mean Corpuscular Hemoglobin 30.6 pg (26-34); Mean Corpuscular Volume 95.9 fl (80-100); Mean Platelet Volume 9.3 fl (7.4-10.4); Monocytes Absolute Auto 0.6 K/mm3 (0.1-0.6); Monocytes Percent Auto 6.9 % (2.6-8.5); Neutrophils Absolute Auto 5.9 K/mm3 (1.3-6.7); Neutrophils Percent Auto 64.4 % (45.5-73.1); Platelet Count Result 209 k/mm3 (150-375); Red Blood Count 4.41 M/mm3 (4.2-5.4); Red Cell Distribution Width 14.2 % (11.5-14.5); White Blood Count 9.2 K/mm3 (4.5-10.0)
[2022-06-18 15:33] LABS: Prothrombin Time 12.6 Seconds (11.1-14.7)
[2022-06-18 15:34] LABS: Partial Thromboplastin Time 26.1 SECONDS (22.3-36.8)
[2022-06-18 17:09] LABS: Alanine Aminotransferase 23 U/L (6-35); Albumin Level 4.4 g/dL (3.5-5.1); Alkaline Phosphatase 57 U/L (38-126); Anion Gap 9 mmol/L (8-16); Aspartate Amino Transferase 37 U/L (14-36); Bilirubin,Total 0.5 mg/dL (0.2-1.3); Blood Urea Nitrogen 24 mg/dL (7-17); Calcium 9.6 mg/dL (8.4-10.2); Carbon Dioxide 31 mmol/L (22-30); Chloride 99 mmol/L (98-107); Estimated CRCL calculation 33 ml/min; Estimated Glomerular Filt Rate 53; Glucose 111 mg/dL (65-110); Potassium 4.9 mmol/L (3.4-5.0); Sodium 139 mmol/L (137-145)
--- NOTE | 2022-06-18 19:47 | PC.NURSE ---
Expressed the need for a patient sitter at this time. No sitter available. ED Charge aware and gatehouse attendant aware. Bed alarm already in place, yellow clasp applied and yellow triangle outside the door.
--- NOTE | 2022-06-18 20:46 | PC.NURSE ---
[facility] called to transfer pt back to [place], [place]. Estimated arrival time of 2244. Trip #[id number]
[2022-06-18] MEDS: ACETAMINOPHEN 500 MG TABLET 1000 MG PO (22:40)
--- NOTE | 2022-06-18 23:31 | PC.NURSE ---
[facility] called at 2130 to confirm ETA. [facility] stated they were coming from [place], and it would be about 25-35 minutes.
--- NOTE | 2022-06-18 23:32 | PC.NURSE ---
[facility] called at 2230 for an updated ETA. Adriana stated due to their high call volumes their ETA is now [phone].
[2022-06-19 01:14] VITALS: BP 132/77; PULSE 98; RESP 18; O2SAT 98
--- NOTE | 2022-06-19 01:33 | PC.NURSE ---
ED Charge nurse Lulu JUARES removed this patient IV
--- NOTE | 2022-06-19 01:34 | PC.NURSE ---
The patient daughter mad at staff because we do not have record of all patient I&O, exatly how much she had to eat and drink.
--- NOTE | 2022-06-19 01:37 | PC.NURSE ---
This patient ate 10% of her dinner tray at 1900 before this RN was on. The tray was taken to dirty room to set old tray. Patient also had a turkey sandwich and had 1 apple juice.
== END 2022-06-19 01:33 ==
PROVIDERS: Emergency Provider Emergency Medicine; PCP Family Medicine
DX: F03.90 Unspecified dementia, unspecified severity, without behavioral disturbance, psychotic disturbance, mood disturbance, and anxiety (principal); R09.02 Hypoxemia; Z20.822 Contact with and (suspected) exposure to COVID-19; I10 Essential (primary) hypertension; E78.5 Hyperlipidemia, unspecified; G89.4 Chronic pain syndrome; Z90.710 Acquired absence of both cervix and uterus; Z96.651 Presence of right artificial knee joint; Z66 Do not resuscitate; I44.7 Left bundle-branch block, unspecified
CPT/HCPCS: 36415; 51701; 71045; 80053; 81001; 85025; 85610; 85730; 87637; 93005; 99284; A9270; J7030

== ENCOUNTER 2022-09-07 08:20 | Outpatient (CLI) | payer MEDICARE, SELFPAY ==
--- NOTE | ~2022-09-07 | US_ITS ---
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 TECHNIQUE: Segmental pressures and plethysmographic and Doppler waveforms of the brachial and lower e xtremity arteries were obtained. COMPARISON: None. FINDINGS: Right and left brachial artery pressures of 111 mm Hg and 110 mm Hg, respectively, are concordant (no rmal difference <= 30 mmHg). The right ankle-brachial index (LISSET) is 1.06 (normal >= 0.9-1). The right great toe-brachial index (T BI) is 0.52 (normal >= 0.6-0.8). The right lower extremity segmental pressure gradients are increased between the arteries at the right ankle and the right qzhll-etp-zxsp popliteal artery (normal gradie nts <= 20-30 mmHg between adjacent levels on the same leg or the same levels on the two legs). Arteri al waveforms are triphasic at the right superficial femoral and posterior tibial and biphasic at the right common femoral, popliteal and dorsalis pedis arteries, all with brisk systolic upstrokes. The left LISSET is 1.16. The left TBI is 0.68. The left lower extremity segmental pressure gradients are normal. Arterial waveforms are biphasic with brisk systolic upstrokes throughout. IMPRESSION: 1. Mild arterial occlusive disease to the right lower limb with normal right LISSET but mildly decreased right TBI. 2. No significant arterial occlusive disease to the left lower limb with normal left LISSET and TBI. Reviewed, dictated and finalized at location L. IMPRESSION: 1. Mild arterial occlusive disease to the right lower limb with normal right AB I but mildly decreased right TBI. 2. No significant arterial occlusive disease to the left lower limb with normal left LISSET and TBI.
== END 2022-09-07 08:21 | disposition home or self-care (01) ==
PROVIDERS: PCP Family Medicine; Visit Provider Podiatrist Foot & Ankle Surgery
DX: I73.9 Peripheral vascular disease, unspecified (principal)
CPT/HCPCS: 93923